=== PATIENT | female | born 1955 | race Caucasian/White ===

== ENCOUNTER 2024-05-25 15:15 | Inpatient (IN) | payer OTHER, MEDICAID ==
[~2024-05-25] VITALS: Ht 170.2 cm; Wt 70.4 kg
[2024-05-25 15:17] VITALS: PULSE 82; RESP 17; O2SAT 97
[2024-05-25 16:21] LABS: EOSINOPHILS % (AUTO) 0.3 % (0.0-4.0); HEMATOCRIT 39.1 % (36-48); HEMOGLOBIN 13.2 g/dL (12.0-16.0); LYMPHOCYTES # (AUTO) 1.8 K/uL (1.0-5.5); LYMPHOCYTES % (AUTO) 36.2 % (20.5-51.5); MEAN CORPUSCULAR HEMOGLOBIN 31 pg (27-31); MEAN CORPUSCULAR HGB CONC 34 % (32-36); MEAN CORPUSCULAR VOLUME 90 fL (79.0-98.0); MONOCYTES # (AUTO) 0.6 K/uL (0.0-1.0); MONOCYTES % (AUTO) 11.3 % (1.7-9.3); NEUTROPHILS # (AUTO) 2.5 K/uL (1.8-7.7); NEUTROPHILS % (AUTO) 51.2 % (40.0-70.0); PLATELET COUNT (AUTO) 183 K/uL (130-430); RED BLOOD CELL COUNT(AUTO) 4.33 MIL/uL (4.2-6.2); RED CELL DISTRIBUTION WIDTH 13.8 % (9.0-15.0); WHITE BLOOD COUNT (AUTO) 4.9 K/uL (4.8-10.8)
[2024-05-25 16:55] LABS: ANION GAP 7 (5-15); CALCIUM 9.3 mg/dL (8.4-11.0); CARBON DIOXIDE 27 mmol/L (23-29); CHLORIDE 109 mmol/L (98-107); CREATININE 0.63 mg/dL (0.55-1.30); GFR AFRICAN AMERICAN 122 mL/min (>90); GFR NON AFRICAN-AMERICAN 100 mL/min (>90); GLUCOSE 99 mg/dL (74-106); SODIUM SERUM 143 mmol/L (136-145); UREA NITROGEN, BLOOD 14 mg/dL (8-21)
[2024-05-25] MEDS ORDERED: NITROGLYCERIN 0.4 MG TAB.SUBL SL PRN (18:00)
[2024-05-25] MEDS ORDERED: ONDANSETRON HCL 4 MG/2 ML VIAL IVP PRN (18:00)
[2024-05-25] MEDS ORDERED: HYDROcodone/ACETAMIN 5-325 MG TAB (NORCO/ VICODIN) PO PRN (18:00)
[2024-05-25] MEDS ORDERED: MORPHINE 2 MG/ML INJ. SYRINGE IVP PRN (18:00)
[2024-05-25] MEDS ORDERED: ACETAMINOPHEN 325 MG TABLET PO PRN (18:00)
[2024-05-25] MEDS ORDERED: SULF500T8 PO (18:50)
[2024-05-25] MEDS ORDERED: SPIR25TA6 PO (18:50)
[2024-05-25] MEDS ORDERED: FAMO20TA8 PO (18:50)
[2024-05-25] MEDS ORDERED: MET2.5 PO (18:50)
[2024-05-25] MEDS ORDERED: SACU1TAB PO (18:50)
[2024-05-25] MEDS ORDERED: FOLI-43 PO (18:50)
[2024-05-25] MEDS ORDERED: DAPA10TA PO (18:50)
[2024-05-25] MEDS ORDERED: CARV12.548 PO (18:50)
[2024-05-25 19:28] VITALS: BP_SYST 104; BP_SYST 98; PULSE 73; RESP 20; TEMP 97.4
[2024-05-25 20:00] VITALS: BP_SYST 104; PULSE 73; RESP 18; TEMP 97.4; O2SAT 96
[2024-05-25] MEDS: SACUBITRIL/VALSARTAN 24 MG-26 MG 1 TABLET PO SCH (21:00)
[2024-05-25] MEDS ORDERED: SACUBITRIL/VALSARTAN 24 MG-26 MG 1 TABLET PO SCH (21:00)
[2024-05-25] MEDS: CARVEDILOL 12.5 MG TABLET (COREG) PO SCH (21:07)
[2024-05-25] MEDS: sulfaSALAzine 500 MG TABLET PO SCH (21:07)
[2024-05-26 01:43] VITALS: BP_SYST 102; PULSE 70; RESP 18; TEMP 98.8
[2024-05-26 08:00] VITALS: BP_SYST 111; PULSE 65; RESP 18; TEMP 98; O2SAT 96
[2024-05-26 09:21] LABS: BASOPHILS % (AUTO) 0.2 % (0.0-2.0); EOSINOPHILS % (AUTO) 0.7 % (0.0-4.0); HEMATOCRIT 39.9 % (36-48); LYMPHOCYTES # (AUTO) 2.3 K/uL (1.0-5.5); LYMPHOCYTES % (AUTO) 51.2 % (20.5-51.5); MEAN CORPUSCULAR HEMOGLOBIN 30 pg (27-31); MEAN CORPUSCULAR HGB CONC 33 % (32-36); MEAN CORPUSCULAR VOLUME 93 fL (79.0-98.0); MONOCYTES # (AUTO) 0.5 K/uL (0.0-1.0); MONOCYTES % (AUTO) 11.6 % (1.7-9.3); NEUTROPHILS # (AUTO) 1.6 K/uL (1.8-7.7); NEUTROPHILS % (AUTO) 36.3 % (40.0-70.0); PLATELET COUNT (AUTO) 163 K/uL (130-430); RED CELL DISTRIBUTION WIDTH 14.1 % (9.0-15.0); WHITE BLOOD COUNT (AUTO) 4.5 K/uL (4.8-10.8)
[2024-05-26 09:36] LABS: ALANINE AMINOTRANSFERASE 24 U/L (12-78); ALBUMIN 3.4 g/dL (3.4-4.8); ANION GAP 5 (5-15); ASPARTATE AMINOTRANSFERASE 14 U/L (10-37); CALCIUM 8.7 mg/dL (8.4-11.0); CARBON DIOXIDE 27 mmol/L (23-29); CHLORIDE 111 mmol/L (98-107); CREATININE 0.67 mg/dL (0.55-1.30); GFR AFRICAN AMERICAN 113 mL/min (>90); GFR NON AFRICAN-AMERICAN 94 mL/min (>90); GLUCOSE 91 mg/dL (74-106); POTASSIUM 4.2 mmol/L (3.5-5.1); SODIUM SERUM 143 mmol/L (136-145); TOTAL BILIRUBIN 0.3 mg/dL (0.0-1.0); TOTAL PROTEIN, SERUM 6.7 g/dL (6.4-8.3); UREA NITROGEN, BLOOD 18 mg/dL (8-21)
[2024-05-26] MEDS: ASPIRIN 81 MG TAB.CHEW PO SCH (10:09)
[2024-05-26] MEDS: FOLIC ACID 1 MG TABLET PO SCH (10:09)
[2024-05-26] MEDS: FAMOTIDINE 20 MG TABLET PO SCH (10:10)
[2024-05-26] MEDS: SPIRONOLACTONE 25 MG TABLET (ALDACTONE) PO SCH (10:11)
[2024-05-26 12:00] VITALS: BP_SYST 112; PULSE 68; RESP 20; TEMP 97.6; O2SAT 98
[2024-05-26 16:00] VITALS: BP_SYST 109; PULSE 64; RESP 18; TEMP 97.7; O2SAT 99
[2024-05-26 17:56] VITALS: BP_SYST 114; PULSE 72; RESP 18; TEMP 98.2; O2SAT 98
[2024-05-26] MEDS ORDERED: HEPARIN SODIUM,PORCINE 5,000 UNITS/ML VIAL SUBCUT SCH (21:00)
== END 2024-05-26 18:25 | disposition home or self-care (01) | DRG 313 ==
LOC: SED 15:15 → STU 17:49
PROVIDERS: ADMIT Internal Medicine; ATTEND Internal Medicine
DX: R07.89 Other chest pain (principal); M06.8A Other specified rheumatoid arthritis, other specified site; Z79.899 Other long term (current) drug therapy; Z95.810 Presence of automatic (implantable) cardiac defibrillator; I11.0 Hypertensive heart disease with heart failure; I50.9 Heart failure, unspecified; Z45.02 Encounter for adjustment and management of automatic implantable cardiac defibrillator
CPT/HCPCS: 36415; 71045; 80048; 80053; 83880; 84484; 85025; 93005; 93306; 99285; G0378